=== PATIENT | male | born 1990 ===

== ENCOUNTER → 2020-10-20 | Outpatient (CLI) | payer OTHER | END | disposition home or self-care (01) | LOC: PPH VACUNA | DX: Z23 Encounter for immunization (principal) ==

== ENCOUNTER 2021-07-28 13:18 | Outpatient (CLI) | payer OTHER | END 2021-07-28 13:25 | disposition home or self-care (01) | LOC: PPH VACUNA 13:18 | PROVIDERS: ATTEND Emergency Medicine Pediatric Emergency Medicine | DX: Z23 Encounter for immunization (principal) ==